=== PATIENT | female | born 1960 | race Caucasian/White ===

== ENCOUNTER 2018-03-12 18:08 | Emergency (ER) | payer BC ==
[~2018-03-12] VITALS: Ht 165.1 cm; Wt 100.0 kg
[~2018-03-12 18:08] MED LIST: ALEVE220 M1 PO; ALPRAZOLAM0.5 MG PO; AMBIEN5 MG PO; CONTRAVE 8-90 M1 TAB PO; ESCITALOPRAM OX10 MG PO; HAWTHORNE; HOMEOPATHIC; MAALOX; MIGRAINE RELIEF PO; NO HOME MEDS; OMEPRAZOLE40 MG PO; PEPTO-BISM524 MG/30 OR; PHENERGAN25 MG RE; PRILOSEC40 MG PO; TOPAMAX50 M1 PO; XANAX0.25 MG PO; ZOFRAN4 MG/TAB PO
[2018-03-12 18:57] LABS: HEMATOCRIT 41.2 % (37.0-47.0); HEMOGLOBIN 13.6 g/dl (12.0-16.0); IMMATURE GRANULOCYTES 0.1 % (0.0-1.0); MEAN CELL VOLUME 84.8 fL CALC (80.0-100.0); NEUT# 3.51 thou/uL (2.00-7.15); RED BLOOD COUNT 4.86 mill/uL (4.20-5.60); RED CELL DISTRI WIDTH 13.4 % (11.5-15.5)
[2018-03-12 18:58] LABS: URINE BILIRUBIN - DIPSTICK NEGATIVE (NEGATIVE); URINE BLOOD DIPSTICK NEGATIVE (NEGATIVE); URINE COLOR YELLOW; URINE GLUCOSE - DIPSTICK NEGATIVE (NEGATIVE); URINE KETONE NEGATIVE (NEGATIVE); URINE LEUK ESTERASE TRACE (NEGATIVE); URINE NITRITE - DIPSTICK NEGATIVE (Negative); URINE PROTEIN - DIPSTICK NEGATIVE (NEG-TRACE); URINE SPECIFIC GRAVITY 1.025
[2018-03-12 18:59] LABS: URINE CLARITY CLEAR
[2018-03-12 19:10] LABS: ALBUMIN 4.2 g/dL (3.2-5.0); ALKALINE PHOSPHATASE 110 u/l (38-126); ANION GAP 17 (6-22 (CALC)); BILIRUBIN, TOTAL 0.4 mg/dL (0.0-1.4); BUN 21 mg/dL (7-17); BUN/CREATININE RATIO 20 (12-20 (CALC)); CARBON DIOXIDE 24 mmol/l (22-30); CHLORIDE 105 mmol/l (95-108); GFR 58 ML/MIN (>=60 (CALC)); GFR FOR AFR.AMER. > 60 ML/MIN (>=60 (CALC)); LIPASE 91 u/l (23-300); SGOT/AST 20 u/l (14-36); SGPT/ALT 44 u/l (9-52); SODIUM 141 mmol/l (137-146); TOTAL PROTEIN 7.2 g/dL (6.3-8.2)
[2018-03-12] MEDS ORDERED: ULTRAM50 MG PO (20:37)
[2018-03-12] MEDS ORDERED: ZOFRAN ODT4 MG PO (20:37)
[2018-03-12] MEDS ORDERED: CARAFATE1 G1 PO (20:54)
[2018-03-12 20:59] VITALS: BP 118/57
== END 2018-03-12 20:59 | disposition home or self-care (01) | DRG 392 ==
LOC: ED 18:08
PROVIDERS: Family Medicine
DX: R10.11 Right upper quadrant pain (principal); K29.70 Gastritis, unspecified, without bleeding; K21.9 Gastro-esophageal reflux disease without esophagitis; K44.9 Diaphragmatic hernia without obstruction or gangrene
CPT/HCPCS: Q9967

== ENCOUNTER 2018-10-18 17:41 | Emergency (ER) | payer BC ==
[~2018-10-18] VITALS: Ht 165.1 cm; Wt 100.0 kg
[~2018-10-18 17:41] MED LIST changes: +CARAFATE1 G1 PO; +ULTRAM50 MG PO; +ZOFRAN ODT4 MG PO
[2018-10-18] MEDS ORDERED: ZOFRAN ODT4 MG PO (20:52)
[2018-10-18 21:00] VITALS: BP 141/81
== END 2018-10-18 21:00 | disposition home or self-care (01) | DRG 153 ==
LOC: ED 17:41
DX: J06.9 Acute upper respiratory infection, unspecified (principal); K21.9 Gastro-esophageal reflux disease without esophagitis; K44.9 Diaphragmatic hernia without obstruction or gangrene